=== PATIENT | male | born 1955 | race Caucasian/White ===

== ENCOUNTER → 2021-12-15 | Outpatient (CLI) | payer OTHER ==
[2021-12-15 14:29] LABS: ABG BASE EXCESS 6.3 mmol/L (-2.0-2.0); ARTERIAL BLOOD GAS PH 7.325 (7.35-7.45)
== END | disposition home or self-care (01) ==
LOC: LAB 14:05
DX: J62.8 Pneumoconiosis due to other dust containing silica (principal)

== ENCOUNTER 2022-05-01 16:08 | Emergency (ER) | payer MEDICARE ==
[~2022-05-01] VITALS: Ht 182.8 cm; Wt 100.0 kg
[2022-05-01 16:43] VITALS: BP 128/86
[2022-05-01 17:12] LABS: ABG BASE EXCESS 8.7 mmol/L (-2.0-2.0); ARTERIAL BLOOD GAS PH 7.421 (7.35-7.45); ARTERIAL BLOOD GAS PO2 437.4 (80-90)
[2022-05-01 17:18] LABS: ALKALINE PHOSPHATASE 70 U/L (46-116); BUN 16 mg/dl (9-23); CHLORIDE 99 mmol/L (98-107); POTASSIUM 4.2 mmol/L (3.4-5.1); SGPT/ALT 39 U/L (10-49); TOTAL PROTEIN 6.7 gm/dL (6.0-8.0)
== END 2022-05-01 18:56 | disposition short-term general hospital (02) ==
LOC: ED 16:08
PROVIDERS: Emergency Medicine
DX: I46.9 Cardiac arrest, cause unspecified (principal); J44.9 Chronic obstructive pulmonary disease, unspecified